=== PATIENT | female | born 1980 | race Caucasian/White ===

== ENCOUNTER 2017-11-02 05:49 | Day surgery (SDC) | payer BC ==
[2017-10-29 13:11] VITALS: BMI 31.8
--- NOTE | 2017-11-01 07:31 | P.HPOB ---
History of Present Illness H&P Date: 11/01/17 Chief Complaint: Menorrhagia and abnormal ultrasound. This patient is a pleasant 36-year-old 3 para 3 female who is referred to me for evaluation of menorrhagia and abnormal pelvic ultrasound. Patient states that her periods became very heavy in July and a pelvic ultrasound by her family doctor showed an endometrial growths, fibroids, and abnormal thickening. Patient also had some benign appearing ovarian cysts. I repeated her pelvic ultrasound that showed endometrium to be 23 mm with a questionable 1- 2 cm endometrial polyp. Patient now presents for further evaluation by hysteroscopy and D&C. Review of Systems Genitourinary: Reports abnormal vaginal bleeding Menstruation: Reports as per HPI, Reports period heavy Past Medical History Additional Past Medical History / Comment(s): HX OF GALL STONES WITH ERCP X2, FREQUENT UTI'S, HEAVY MENSTRUAL PERIODS AND STATES MASS IN UTERUS AND OVARIAN CYST. History of Any Multi-Drug Resistant Organisms: None Reported Past Surgical History: Cholecystectomy, Tubal Ligation Additional Past Surgical History / Comment(s): ERCP X2 Past Anesthesia/Blood Transfusion Reactions: Motion Sickness, Postoperative Nausea & Vomiting (PONV) Past Psychological History: Anxiety, Depression Smoking Status: Never smoker Past Alcohol Use History: Rare Past Drug Use History: None Reported - Past Family History Mother Family Medical History: Cancer Additional Family Medical History / Comment(s): CERVICAL & LUNG CA Medications and Allergies Home Medications Medication Instructions Recorded Confirmed Type Melatonin 20 mg PO HS PRN 10/29/17 10/29/17 History Sertraline [Zoloft] 50 mg PO DAILY 10/29/17 10/29/17 History buPROPion SR [Wellbutrin Sr] 150 mg PO BID 10/29/17 10/29/17 History Allergies Allergy/AdvReac Type Severity Reaction Status Date / Time morphine AdvReac Nausea & Verified 10/29/17 13:02 Vomiting Exam - OBG Physical Exam Abdomen: bowel sounds normal, no diffuse tenderness, no bruit present, no guarding noted, no hepatomegaly, no splenomegaly, no mass Vulva: both: normal Vagina: normal moisture, no discharge Cervix: no lesion, no discharge Uterus: normal size, normal contour Results Pelvic ultrasound as above. Assessment and Plan Assessment: This is a pleasant 36-year-old 3 para 3 female with menorrhagia and abnormal thickening on pelvic ultrasound consistent with probable polyp versus fibroid. Plan is hysteroscopy and D&C for further evaluation. Patient does understand the surgery and risks including risks of infection, bleeding, possible uterine perforation. All the patient's questions are answered and a written consent is obtained. (1) Menorrhagia Status: Chronic Code(s): N92.0 - EXCESSIVE AND FREQUENT MENSTRUATION WITH REGULAR CYCLE SNOMED Code(s): 451582785 (2) Abnormal pelvic ultrasound Status: Acute Code(s): R93.8 - ABNORMAL FINDINGS ON DIAGNOSTIC IMAGING OF BODY STRUCTURES SNOMED Code(s): 871070176
[~2017-11-02 05:49] MED LIST: DEXAMETHASONE SOD PHOSPHATE 10 MG/ML 1 ML VIAL IV ONE; MIDAZOLAM 2 MG/2 ML VIAL IV PRN; ONDANSETRON 4 MG/2 ML VIAL IVP ONE; Pre Op ABX Message 1 EACH MISC MISCELLANE ONE; SCOPOLAMINE 1.5MG/72HR PATCH TRANSDERM ONE; SODIUM CHLORIDE 0.9% 500 ML IV ONE
[2017-11-02 06:36] LABS: Basophils # (A) 0.1 k/uL (0-0.2); Basophils % (A) 1 %; Eosinophils # (A) 0.2 k/uL (0-0.7); Eosinophils % (A) 3 %; HCT 37.2 % (34.0-46.0); Lymphocytes # (A) 2.5 k/uL (1.0-4.8); Lymphocytes % (A) 29 %; MCH 29.4 pg (25.0-35.0); MCHC 34.9 g/dL (31.0-37.0); MCV 84.2 fL (80.0-100.0); Mean Platelet Volume 7.3; Monocytes # (A) 0.5 k/uL (0-1.0); Monocytes % (A) 5 %; Neutrophils # (A) 5.4 k/uL (1.3-7.7); Neutrophils % (A) 62 %; Platelet Count 354 k/uL (150-450); RBC 4.41 m/uL (3.80-5.40); RDW 12.9 % (11.5-15.5); WBC 8.7 k/uL (3.8-10.6)
[2017-11-02] MEDS ORDERED: LIDOCAINE 1% 20 ML VIAL (10MG/ML) FOR IV START INTRADERMA ONE (06:44)
[2017-11-02] MEDS: LACTATED RINGERS 1,000 ML IV SCH ×2 (06:44→07:20)
[2017-11-02] MEDS ORDERED: KETOROLAC 30 MG/ML 1 ML VIAL ONE (07:20)
[2017-11-02] MEDS ORDERED: MIDAZOLAM 2 MG/2 ML VIAL ONE (07:20)
[2017-11-02] MEDS ORDERED: LIDOCAINE 1% INJ 10MG/ML (20 ML MDV) ONE (07:20)
[2017-11-02] MEDS ORDERED: fentaNYL (PF) 50 MCG/ML 2 ML AMP ONE (07:20)
[2017-11-02] MEDS ORDERED: PROPOFOL 10 MG/ML 20 ML VIAL IV ONE (07:20)
--- NOTE | 2017-11-02 07:53 | P.OP ---
Date of Procedure: 11/02/17 Preoperative Diagnosis: Menorrhagia and abnormal endometrial thickening Postoperative Diagnosis: Same Procedure(s) Performed: #1: Hysteroscopy. #2: Dilation and curettage. Anesthesia: MAC Surgeon: Ferny Grove Estimated Blood Loss (ml): 10 Urine output (ml): 30 Pathology: other (Uterine curettings) Condition: stable Disposition: PACU Indications for Procedure: Please see dictated H&P for intimate details of this patient's admission. Brief summary this is a pleasant 36-year-old female whose had intermittent episodes of menorrhagia and ultrasound that is shown persistent endometrial thickening consistent with possible endometrial polyp. Patient now presents for hysteroscopy D&C for further evaluation and treatment. Patient does understand the surgery and risks including risks of infection, bleeding, possible uterine perforation. All the patient's questions are answered written consent is obtained. Operative Findings: This patient had multiple benign-appearing polyps on hysteroscopy. Description of Procedure: This patient is taken to the operating room where she is laid in the supine position. She subsequently undergoes general mask anesthesia without incident. With an adequate level of anesthesia she's placed in the dorsal lithotomy position. She has a vaginal perineal prep and drape. Examination under anesthesia shows a mid position uterus slightly enlarged. I first drain the bladder for 30 mL of clear urine. I grabbed the anterior lip of the cervix with an Allis clamp and a weighted speculum was placed in the posterior vagina. Uterus is then sounded gently to 9 cm. Gentle dilation is done of the endocervix to allow the hysteroscope easily uterine cavity. Hysteroscopy is performed and multiple polyps are noted. These do have a benign appearance grossly. With this done the hysteroscope was removed. Cervix is dilated more to allow a polyp forceps into the uterine cavity. Using polyp forceps are removed multiple appear to be benign polyps. A gentle but vigorous 4 quadrant curettage is also done for a generous amount of tissue. A final pass of the polyp forceps shows no further tissue. There is minimal bleeding. This point procedure is ended. The weighted speculum and Allis clamps removed. All counts are correct 3. There are no complications. Patient is awakened from anesthesia and taken recovery in satisfactory condition.
[2017-11-02 07:54] VITALS: RESP 16; TEMP 97.2
[2017-11-02 08:01] VITALS: PULSE 77
[2017-11-02 08:44] VITALS: BP 117/72
== END 2017-11-02 09:27 | disposition home or self-care (01) ==
LOC: OR 05:49
PROVIDERS: ATTEND Obstetrics & Gynecology
DX: N84.1 Polyp of cervix uteri (principal); F41.9 Anxiety disorder, unspecified; F32.9 Major depressive disorder, single episode, unspecified; Z79.899 Other long term (current) drug therapy; Z88.5 Allergy status to narcotic agent
CPT/HCPCS: 81025; 88305; 85025; 58558; J2250; J1100; J2405; J2001; J3010; J1885; J2704